=== PATIENT | female | born 1990 ===

== ENCOUNTER 2019-05-06 00:16 | Observation (INO) | payer BC ==
[2019-05-06] MEDS ORDERED: Methylergonovine 0.2 MG/1 ML Amp IM PRN (00:22)
[2019-05-06] MEDS ORDERED: Nalbuphine 10 MG/1 ML Vial IVPUSH PRN (00:22)
[2019-05-06] MEDS ORDERED: Sodium Chloride 0.9% 2.5 ML Syringe FLUSH PRN (00:22)
[2019-05-06] MEDS ORDERED: Tranexamic Acid 1,000 MG in Sodium Chloride 0.9% 100 ML IV PRN (00:22)
[2019-05-06] MEDS ORDERED: Misoprostol 200 MCG Tab PO PRN (00:22)
[2019-05-06] MEDS ORDERED: Misoprostol 25 MCG (1/4 of 100 MCG) Tab VAG PRN ×2 (00:22)
[2019-05-06] MEDS ORDERED: Lidocaine 1% 50 ML MDV INJECT PRN (00:22)
[2019-05-06] MEDS ORDERED: Terbutaline 1 MG/ML SDV SUBCUT PRN (00:22)
[2019-05-06] MEDS ORDERED: Sodium Chloride 0.9% 10 ML SDV IV PRN (00:22)
[2019-05-06] MEDS ORDERED: Water For Irrigation,Sterile 1,000 ML Container IRR PRN (00:22)
[2019-05-06] MEDS ORDERED: Sodium Chloride 0.9% 10 ML Syringe FLUSH PRN (00:22)
[2019-05-06] MEDS ORDERED: Butorphanol 1 MG/ML SDV IVPUSH PRN (00:22)
[2019-05-06] MEDS ORDERED: Carboprost Tromethamine 250 MCG/1 ML Amp IM PRN (00:22)
[2019-05-06] MEDS ORDERED: Oxytocin/0.9 % Sodium Chloride 30 UNIT/500 ML BAG IV SCH ×2 (00:30)
[2019-05-06] MEDS: Lactated Ringers 1,000 ML IV SCH ×3 (09:49→12:39)
--- NOTE | 2019-05-06 12:12 | PCM.PREANE ---
Preanesthetic Assessment - Anesthesia/Transfusion/Family Hx Anesthesia History: Prior Anesthesia Without Reaction Family History of Anesthesia Reaction: No Transfusion History: No Prior Transfusion(s) - Review of Systems General: No Symptoms Pulmonary: No Symptoms Cardiovascular: No Symptoms Gastrointestinal: No Symptoms Neurological: No Symptoms Other: Reports: None - Physical Assessment Height: 5 ft 8 in Weight: 92.986 kg ASA Class: 2 Mental Status: Alert & Oriented x3 Airway Class: Mallampati = 1 Dentition: Reports: Normal Dentition Thyro-Mental Finger Breadths: 3 Mouth Opening Finger Breadths: 3 ROM/Head Extension: Full Lungs: Clear to Auscultation, Normal Respiratory Effort Cardiovascular: Regular Rate, Regular Rhythm - Lab Values: Laboratory Last Values WBC 8.77 K/uL (4.0-11.0) 05/06/19 01:15 RBC 3.59 M/uL (4.30-5.90) L 05/06/19 01:15 Hgb 10.5 g/dL (12.0-16.0) L 05/06/19 01:15 Hct 31.6 % (36.0-46.0) L 05/06/19 01:15 MCV 88.0 fL (80.0-98.0) 05/06/19 01:15 MCH 29.2 pg (27.0-32.0) 05/06/19 01:15 MCHC 33.2 g/dL (31.0-37.0) 05/06/19 01:15 RDW Std Deviation 41.3 fl (28.0-62.0) 05/06/19 01:15 RDW Coeff of Esteban 13 % (11.0-15.0) 05/06/19 01:15 Plt Count 150 K/uL (150-400) 05/06/19 01:15 MPV 9.70 fL (7.40-12.00) 05/06/19 01:15 Blood Type A POSITIVE 05/06/19 01:15 Antibody Screen NEGATIVE 05/06/19 01:15 - Allergies Allergies/Adverse Reactions: Allergies Allergy/AdvReac Type Severity Reaction Status Date / Time No Known Allergies Allergy Verified 03/11/19 15:52 - Acknowledgements Anesthesia Type Planned: Epidural Pt an Appropriate Candidate for the Planned Anesthesia: Yes Alternatives and Risks of Anesthesia Discussed w Pt/Guardian: Yes Pt/Guardian Understands and Agrees with Anesthesia Plan: Yes PreAnesthesia Questionnaire - Past Health History Medical/Surgical History: Denies Medical/Surgical History HEENT History: Reports: None Cardiovascular History: Reports: None Respiratory History: Reports: None Gastrointestinal History: Reports: GERD Genitourinary History: Reports: STD ACCOUNT ASSOCIATE History: Reports: : 4 Para: 3 LMP (Approximate): Musculoskeletal History: Reports: None Neurological History: Reports: None Psychiatric History: Reports: None Endocrine/Metabolic History: Reports: None Hematologic History: Reports: None Immunologic History: Reports: None Oncologic (Cancer) History: Reports: None Dermatologic History: Reports: None - Infectious Disease History Infectious Disease History: Reports: Other (See Below) Other Infectious Disease History: chylmydia - SUBSTANCE USE Smoking Status *Q: Never Smoker Tobacco Use Within Last Twelve Months: No Recreational Drug Use History: No - CURRENT (IN HOUSE) MEDS Current Meds: Current Medications Butorphanol Tartrate (Stadol) 1 mg IVPUSH Q1H PRN PRN Reason: Pain Carboprost Tromethamine (Hemabate Ds) 250 mcg IM ASDIRECTED PRN PRN Reason: Post Hemorrhage Lactated Ringer's (Ringers, Lactated) 1,000 mls @ 150 mls/hr IV ASDIRECTED MARIAM Last Admin: 05/06/19 11:25 Dose: 150 mls/hr Oxytocin/Sodium Chloride (Oxytocin 30 Unit/500 Ml-Ns) 30 unit in 500 mls @ 999 mls/hr IV TITRATE MARIAM Oxytocin/Sodium Chloride (Oxytocin 30 Unit/500 Ml-Ns) 30 unit in 500 mls @ 2 mls/hr IV TITRATE MARIAM; Protocol Last Titration: 05/06/19 10:10 Dose: 4 munits/min, 4 mls/hr Tranexamic Acid 1,000 mg/ (Sodium Chloride) 110 mls @ 660 mls/hr IV ONETIME PRN PRN Reason: Bleeding Lidocaine HCl (Xylocaine 1%) 50 ml INJECT ONETIME PRN PRN Reason: Laceration repair Methylergonovine Maleate (Methergine) 0.2 mg IM ASDIRECTED PRN PRN Reason: Post Hemorrhage Misoprostol (Cytotec) 200 mcg PO ONETIME PRN PRN Reason: Post Hemorrhage Misoprostol (Cytotec) 25 mcg VAG ONETIME PRN PRN Reason: Cervical Ripening Last Admin: 05/06/19 01:27 Dose: 25 mcg Misoprostol (Cytotec) 25 mcg VAG Q4H PRN PRN Reason: Cervical Ripening Last Admin: 05/06/19 05:28 Dose: 25 mcg Nalbuphine HCl (Nubain) 10 mg IVPUSH Q1H PRN PRN Reason: Pain (severe 7-10) Sodium Chloride (Saline Flush) 10 ml FLUSH ASDIRECTED PRN PRN Reason: Keep Vein Open Sodium Chloride (Saline Flush) 2.5 ml FLUSH ASDIRECTED PRN PRN Reason: Keep Vein Open Sodium Chloride (Normal Saline) 10 ml IV ASDIRECTED PRN PRN Reason: IV Use Sterile Water (Sterile Water For Irrigation) 1,000 ml IRR ASDIRECTED PRN PRN Reason: delivery Terbutaline Sulfate (Brethine) 0.25 mg SUBCUT ASDIRECTED PRN PRN Reason: Tacysystole Discontinued Medications Fentanyl/Bupivacaine HCl (Wxcxnbaz-[id number]-Gf 2 Mcg/Ml-0.125%) Confirm Administered Dose 100 mls @ as directed .ROUTE .ST-MED ONE Stop: 05/06/19 11:40
[2019-05-06] MEDS ORDERED: Docusate Sodium 100 MG Cap PO PRN (14:55)
[2019-05-06] MEDS ORDERED: Bisacodyl 10 MG Supp RECTAL PRN (14:55)
[2019-05-06] MEDS ORDERED: Lanolin 100% Cream 7 GM Tube TOP PRN (14:55)
[2019-05-06] MEDS ORDERED: Acetaminophen 500 MG Tab PO PRN ×2 (14:55)
[2019-05-06] MEDS ORDERED: oxyCODONE 5 MG Tab PO PRN (14:55)
[2019-05-06] MEDS ORDERED: Benzocaine/Menthol 20%-0.5% Spray 78 GM Cannister TOP PRN (14:55)
[2019-05-06] MEDS ORDERED: Ibuprofen 400 MG Tab PO PRN (14:55)
[2019-05-06] MEDS ORDERED: Witch Hazel Medicated Pads 40/Jar TOP PRN (14:55)
[2019-05-07] MEDS: Ibuprofen 800 MG Tab PO PRN ×3 (00:55→14:16)
--- NOTE | 2019-05-07 08:34 | PCM.PNPP ---
- General Info Date of Service: 05/07/19 Subjective Update: 28yo P4 s/p PPD1 , stable , ambulating , voiding and tolerating regular diet Functional Status: Reports: Pain Controlled, Tolerating Diet, Ambulating, Urinating - Review of Systems General: Reports: No Symptoms HEENT: Reports: No Symptoms Pulmonary: Reports: No Symptoms Cardiovascular: Reports: No Symptoms Gastrointestinal: Reports: No Symptoms Genitourinary: Reports: No Symptoms Musculoskeletal: Reports: No Symptoms Skin: Reports: No Symptoms Neurological: Reports: No Symptoms Psychiatric: Reports: No Symptoms - General Info Date of Service: 05/07/19 - Patient Data Vital Signs - Most Recent: Last Vital Signs Temp 36.6 C 05/07/19 04:05 Pulse 74 05/07/19 04:05 Resp 16 05/07/19 04:05 BP 103/66 05/07/19 04:05 Pulse Ox 97 05/07/19 04:05 Weight - Most Recent: 92.986 kg Lab Results - Last 24 Hours: Laboratory Results - last 24 hr 05/07/19 Range/Units 05:35 Hgb 10.2 L (12.0-16.0) g/dL Hct 31.6 L (36.0-46.0) % Med Orders - Current: Current Medications Acetaminophen (Tylenol Extra Strength) 500 mg PO Q4H PRN PRN Reason: Pain Acetaminophen (Tylenol Extra Strength) 1,000 mg PO Q4H PRN PRN Reason: Pain Last Admin: 05/06/19 19:40 Dose: 1,000 mg Benzocaine/Menthol (Dermoplast Pain Relief 20%-0.5% Villard) 78 gm TOP ASDIRECTED PRN PRN Reason: Perineal Comfort Measure Bisacodyl (Dulcolax) 10 mg RECTAL ONETIME PRN PRN Reason: Constipation Butorphanol Tartrate (Stadol) 1 mg IVPUSH Q1H PRN PRN Reason: Pain Carboprost Tromethamine (Hemabate Ds) 250 mcg IM ASDIRECTED PRN PRN Reason: Post Hemorrhage Docusate Sodium (Colace) 100 mg PO BID PRN PRN Reason: Constipation Emollient Ointment (Lansinoh Hpa) 0 gm TOP ASDIRECTED PRN PRN Reason: Sore Nipples Last Admin: 05/06/19 19:41 Dose: 7 gm Lactated Ringer's (Ringers, Lactated) 1,000 mls @ 150 mls/hr IV ASDIRECTED MARIAM Last Admin: 05/06/19 12:39 Dose: 150 mls/hr Oxytocin/Sodium Chloride (Oxytocin 30 Unit/500 Ml-Ns) 30 unit in 500 mls @ 999 mls/hr IV TITRATE MARIAM Last Admin: 05/06/19 14:39 Dose: 999 mls/hr Oxytocin/Sodium Chloride (Oxytocin 30 Unit/500 Ml-Ns) 30 unit in 500 mls @ 2 mls/hr IV TITRATE MARIAM; Protocol Last Titration: 05/06/19 10:10 Dose: 4 munits/min, 4 mls/hr Tranexamic Acid 1,000 mg/ (Sodium Chloride) 110 mls @ 660 mls/hr IV ONETIME PRN PRN Reason: Bleeding Ibuprofen (Motrin) 400 mg PO Q4H PRN PRN Reason: Pain Ibuprofen (Motrin) 800 mg PO Q6H PRN PRN Reason: Pain Last Admin: 05/07/19 00:55 Dose: 800 mg Lidocaine HCl (Xylocaine 1%) 50 ml INJECT ONETIME PRN PRN Reason: Laceration repair Methylergonovine Maleate (Methergine) 0.2 mg IM ASDIRECTED PRN PRN Reason: Post Hemorrhage Misoprostol (Cytotec) 200 mcg PO ONETIME PRN PRN Reason: Post Hemorrhage Misoprostol (Cytotec) 25 mcg VAG ONETIME PRN PRN Reason: Cervical Ripening Last Admin: 05/06/19 01:27 Dose: 25 mcg Misoprostol (Cytotec) 25 mcg VAG Q4H PRN PRN Reason: Cervical Ripening Last Admin: 05/06/19 05:28 Dose: 25 mcg Nalbuphine HCl (Nubain) 10 mg IVPUSH Q1H PRN PRN Reason: Pain (severe 7-10) Oxycodone HCl (Oxycodone) 5 mg PO Q2H PRN PRN Reason: Pain Sodium Chloride (Saline Flush) 10 ml FLUSH ASDIRECTED PRN PRN Reason: Keep Vein Open Sodium Chloride (Saline Flush) 2.5 ml FLUSH ASDIRECTED PRN PRN Reason: Keep Vein Open Sodium Chloride (Normal Saline) 10 ml IV ASDIRECTED PRN PRN Reason: IV Use Sterile Water (Sterile Water For Irrigation) 1,000 ml IRR ASDIRECTED PRN PRN Reason: delivery Terbutaline Sulfate (Brethine) 0.25 mg SUBCUT ASDIRECTED PRN PRN Reason: Tacysystole Witch Anitra (Tucks) 1 pad TOP ASDIRECTED PRN PRN Reason: comfort care Discontinued Medications Fentanyl/Bupivacaine HCl (Gunudmnq-Adhvj-Rd 2 Mcg/Ml-0.125%) Confirm Administered Dose 100 mls @ as directed .ROUTE .STK-MED ONE Stop: 05/06/19 11:40 - Infant Interaction Support Person: - Recovery Exam Fundal Tone: Firm Fundal Level: At Umbilicus Fundal Placement: Midline Lochia Amount: Scant Lochia Color: Rubra/Red Perineum Description: Intact, Minimal Bruising/Swelling Episiotomy/Laceration: None Bladder Status: Voiding - Exam HEENT: Pupils Equal Neck: Supple Lungs: Clear to Auscultation Cardiovascular: Regular Rate, Regular Rhythm GI/Abdominal Exam: Normal Bowel Sounds Extremities: Normal Inspection Neurological: No New Focal Deficit Psy/Mental Status: Alert - Problem List & Annotations (1) Vaginal delivery SNOMED Code(s): 900313695 Code(s): O80 - ENCOUNTER FOR FULL-TERM UNCOMPLICATED DELIVERY Status: Acute Current Visit: Yes - Problem List Review Problem List Initiated/Reviewed/Updated: Yes - My Orders Last 24 Hours: My Active Orders 05/06/19 14:55 Acetaminophen [Tylenol Extra Strength] 1,000 mg PO Q4H PRN Acetaminophen [Tylenol Extra Strength] 500 mg PO Q4H PRN Benzocaine/Menthol [Dermoplast Pain Relief 20%-0.5% Villard] 78 gm TOP ASDIRECTED PRN Bisacodyl [Dulcolax] 10 mg RECTAL ONETIME PRN Docusate Sodium [Colace] 100 mg PO BID PRN Ibuprofen [Motrin] 400 mg PO Q4H PRN Ibuprofen [Motrin] 800 mg PO Q6H PRN Lanolin [Lansinoh HPA] See Dose Instructions TOP ASDIRECTED PRN Witch Anitra [Tucks] 1 pad TOP ASDIRECTED PRN oxyCODONE 5 mg PO Q2H PRN 05/06/19 14:56 Patient Status [ADT] Routine May Shower [RC] ASDIRECTED Up ad Gisell [RC] ASDIRECTED Assess Lochia [WOMSER] Per Unit Routine Assess Uterine Involution [WOMSER] Per Unit Routine Peripheral IV Discontinue [OM.PC] Routine - Assessment Assessment:: 28yo P4 s/p PPD1 , stable , ambulating , voiding and tolerating regular diet - Plan Plan:: Discharge home today
--- NOTE | 2019-05-07 10:13 | PCM48HPAN ---
Post Anesthesia Note - EVALUATION WITHIN 48HRS OF ANESTHETIC Vital Signs in Normal Range: Yes Patient Participated in Evaluation: Yes Respiratory Function Stable: Yes Airway Patent: Yes Cardiovascular Function Stable: Yes Hydration Status Stable: Yes Pain Control Satisfactory: Yes Nausea and Vomiting Control Satisfactory: Yes Mental Status Recovered: Yes Resp Rate: 16
--- NOTE | 2019-05-07 11:54 | OR ---
SURGEON: PIO MACIAS DATE OF PROCEDURE: 05/06/2019 PREOPERATIVE DIAGNOSIS: A 28-year-old G4, P3, at 39 weeks for elective induction of labor. POSTOPERATIVE DIAGNOSIS: A 28-year-old G4, P3, at 39 weeks for elective induction of labor. PROCEDURE: Normal spontaneous vaginal delivery. ESTIMATED BLOOD LOSS: 300. ANESTHESIA: Epidural. NOTES AND FINDINGS: Live male delivered at 1438 score was 8 and 9. Weight 4030g BRIEF HISTORY: A 28-year-old G4, P3, low-risk patient desiring induction of labor. She was explained the risks, benefits, and alternatives, and she decided to proceed. The patient was admitted for induction of labor. She received 3 doses of Cytotec. After Cytotec, she became about 3 cm. Pitocin was started after which she became fully dilated. She had her membranes intact. Her membranes were ruptured and she was encouraged to push. PROCEDURE IN DETAIL: With good patient effort, she delivered the head subsequently by the anterior and posterior shoulder. The body of the was delivered. Delayed cord clamping was observed. Cord blood gases was obtained. The cord was clamped and cut. Placenta was delivered via controlled contraction and Pitocin was started. Perineum was inspected, noted to be intact. Uterine massage was done Uterus was noted to be contracted. All instrument and pad counts were correct x2. The patient tolerated the procedure well and was left in Labor and Delivery room in stable condition. NOEMI MORELOS /[id number] RICHA
== END 2019-05-07 16:50 | disposition home or self-care (01) ==
LOC: MW.OBCHECK 00:16 → UNDOADMOB 00:21 → MW.OB 00:21
PROVIDERS: ADMIT Obstetrics & Gynecology; ATTEND Obstetrics & Gynecology
DX: F53.0 Postpartum depression (principal); O99.345 Other mental disorders complicating the puerperium; F41.9 Anxiety disorder, unspecified; Z3A.39 39 weeks gestation of pregnancy; Z37.0 Single live birth
CPT/HCPCS: 01967; 36415; 51702; 59025; 59409; 85014; 85018; 85027; 86850; 86900; 86901; A9270-GY; J2590; J7120